=== PATIENT | female | born 1980 | race Caucasian/White ===

== ENCOUNTER → 2018-07-05 08:41 | Outpatient (CLI) | payer OTHER, MEDICAID, SELFPAY ==
[2018-07-05 09:22] LABS: Cholesterol 257 mg/dL (140-199); HDL Cholesterol 69 mg/dL (40-60); LDL Cholesterol Calculated 171 mg/dL (<100); Triglycerides 83 mg/dL (35-150)
[2018-07-05 09:54] LABS: Hepatitis B Surface Antigen NEGATIVE s/c (NEGATIVE)
[2018-07-05 10:19] LABS: HIV 1 and 2 Antibody NEGATIVE (NEGATIVE); Hep C Virus Ab w/Reflex Quant NEGATIVE s/c (NEGATIVE)
[2018-07-05 11:24] LABS: Urine N gonorrhoeae NOT DETECTED
[2018-07-05 11:29] LABS: Urine Chlamydia NOT DETECTED
== END ==
PROVIDERS: PCP Family Medicine; Visit Provider Family Medicine
DX: Z20.2 Contact with and (suspected) exposure to infections with a predominantly sexual mode of transmission (principal); E66.3 Overweight; Z13.220 Encounter for screening for lipoid disorders
CPT/HCPCS: 36415; 80061; 86703; 86803; 87340; 87491; 87591

== ENCOUNTER → 2019-03-07 09:06 | Outpatient (CLI) | payer OTHER, MEDICAID, SELFPAY ==
[2019-03-07 09:52] LABS: Alanine Aminotransferase 19 IU/L (9-52); Albumin 4.3 g/dL (3.5-5.0); Albumin Globulin Ratio 1.5 (1.0-2.8); Alkaline Phosphatase 53 U/L (38-126); Aspartate Aminotransferase 19 IU/L (14-36); BUN Creatinine Ratio 15.6 (6-22); Bilirubin Total 0.3 mg/dL (0.2-1.3); Blood Urea Nitrogen 14 mg/dL (7-17); Calcium 8.8 mg/dL (8.4-10.2); Carbon Dioxide 26 mmol/L (22-32); Chloride 106 mmol/L (98-107); Cholesterol 212 mg/dL (140-199); Estimated Glomerular Filt Rate > 60.0 mL/min (>60); Globulin 2.9 g/dL (1.7-4.1); Glucose 94 mg/dL (70-100); HDL Cholesterol 56 mg/dL (40-60); HEMOLYSIS < 15 (0-50); LDL Cholesterol Calculated 139 mg/dL (<100); Potassium 4.1 mmol/L (3.4-5.1); Sodium 139 mmol/L (137-145); Total Protein 7.2 g/dL (6.3-8.2); Triglycerides 83 mg/dL (35-150)
[2019-03-07 10:26] LABS: Hematocrit 44.4 % (36-46); Hemoglobin 15.1 g/dL (12.0-16.0); Mean Corpuscular Hemoglobin 31.5 PG (26-34); Mean Corpuscular Volume 92.5 fL (80-100); Platelet Count 226 X10^3/uL (150-400); Red Cell Distribution Width 13.1 % (11.6-14.8); White Blood Cell Count 8.7 X10^3/uL (4.5-11.0)
[2019-03-07 11:25] LABS: TSH w/ Reflex to FT4 1.13 uIU/mL (0.47-4.68)
== END ==
PROVIDERS: PCP Nurse Practitioner Family; Visit Provider Obstetrics & Gynecology Maternal & Fetal Medicine
DX: E78.2 Mixed hyperlipidemia (principal); Z00.00 Encounter for general adult medical examination without abnormal findings; Z68.31 Body mass index [BMI] 31.0-31.9, adult
CPT/HCPCS: 36415; 80053; 80061; 84443; 85027

== ENCOUNTER → 2019-09-15 12:28 | Outpatient (CLI) | payer OTHER, MEDICAID, SELFPAY | PROVIDERS: PCP Nurse Practitioner Family; Visit Provider Specialist | DX: N91.2 Amenorrhea, unspecified (principal); Z87.59 Personal history of other complications of pregnancy, childbirth and the puerperium | CPT/HCPCS: 36415; 84702 ==

== ENCOUNTER → 2019-11-20 15:07 | Outpatient (CLI) | payer OTHER, MEDICAID, SELFPAY ==
[2019-11-20 15:51] LABS: Add Manual Diff / Slide Review NO; Basophils Absolute Auto 0 /uL (0-100); Basophils Percent Auto 0.3 % (0-2); Eosinophils Absolute Auto 200 /uL (0-450); Eosinophils Percent Auto 1.7 % (2-4); Hematocrit 38.3 % (36-46); Hemoglobin 13.1 g/dL (12.0-16.0); Lymphocytes Absolute Auto 1400 /uL (1100-4500); Lymphocytes Percent Auto 14.4 % (25-40); Mean Corpuscular HGB Conc 34.1 % (30-36); Mean Corpuscular Hemoglobin 30.8 PG (26-34); Mean Corpuscular Volume 90.3 fL (80-100); Monocytes Absolute Auto 900 /uL (0-900); Monocytes Percent Auto 9.2 % (3-14); Neutrophils Absolute Auto 7500 /uL (1500-7000); Neutrophils Percent Auto 74.4 % (50-75); Platelet Count 234 X10^3/uL (150-400); Red Blood Cell Count 4.24 X10^6/uL (4.0-5.2); Red Cell Distribution Width 12.8 % (11.6-14.8)
[2019-11-20 16:23] LABS: Appearance Urine UA CLEAR; Bilirubin Urine UA NEGATIVE (NEGATIVE); Color Urine UA YELLOW; Glucose Urine UA NEGATIVE (Negative); Ketones Urine UA NEGATIVE (NEGATIVE); Leukocyte Esterase Urine UA NEGATIVE (NEGATIVE); Nitrite Urine UA NEGATIVE (Negative); Occult Blood Urine UA NEGATIVE (Negative); Protein Urine UA NEGATIVE (Negative); Urobilinogen Urine UA 0.2 E.U./dL (0.2)
[2019-11-20 16:24] LABS: pH Urine UA 5.5 (4.5-8.0)
[2019-11-20 16:53] LABS: HCG Quantitative /Beta subunit 42829 mIU/mL
[2019-11-20 17:14] LABS: Hepatitis B Surface Antigen NEGATIVE s/c (NEGATIVE); Rubella Antibody IgG 5.1 IU/mL (>15)
[2019-11-20 17:16] LABS: HIV 1 & 2 Ab/Ag 4th Gen Combo NEGATIVE (NEGATIVE); Hep C Virus Ab w/Reflex Quant NEGATIVE s/c (NEGATIVE)
[2019-11-22 18:31] LABS: RPR Screen Nonreactive (Nonreactive)
[2019-11-24 12:54] LABS: HSV 1 IgM Screen Negative (Negative); HSV 2 IgM Screen Negative (Negative)
== END ==
PROVIDERS: PCP Nurse Practitioner Family; Visit Provider Specialist
DX: Z34.81 Encounter for supervision of other normal pregnancy, first trimester (principal); N91.2 Amenorrhea, unspecified; Z87.59 Personal history of other complications of pregnancy, childbirth and the puerperium
CPT/HCPCS: 36415; 80055; 81003; 84702; 86695; 86696; 86787; 86803; 86850; 86900; 86901; 87086; 87389

== ENCOUNTER → 2019-11-26 11:46 | Outpatient (CLI) | payer OTHER, MEDICAID, SELFPAY ==
[2019-11-30 00:34] LABS: AFP, Serum 33.1 ng/mL; Brief History NTD NG; Cigarette Smoker NO; Donated Egg NO; Donor Egg Age NOT GIVEN; Estriol, Free 1.01 ng/mL; Inhibin A, Dimeric 151 pg/mL; Inhibin A, MoM 1.01; Maternal Ethnicity White; Maternal Weight 201 lbs; Number of Fetuses 1; Previous Pregnancy Down Syndro NO; hCG, MoM 1.45; hCG, Serum 42.7 IU/mL
== END ==
PROVIDERS: PCP Nurse Practitioner Family; Visit Provider Specialist
DX: Z34.92 Encounter for supervision of normal pregnancy, unspecified, second trimester (principal); Z3A.16 16 weeks gestation of pregnancy
CPT/HCPCS: 36415; 82105; 82677; 84702; 86336

== ENCOUNTER → 2019-12-09 16:10 | Outpatient (CLI) | payer OTHER, MEDICAID, SELFPAY ==
[2019-12-09 18:29] LABS: Clostridium Difficile Tox PCR Negative for C. diff
== END ==
PROVIDERS: PCP Nurse Practitioner Family; Visit Provider Specialist
DX: Z34.92 Encounter for supervision of normal pregnancy, unspecified, second trimester (principal); R19.7 Diarrhea, unspecified
CPT/HCPCS: 87493

== ENCOUNTER → 2019-12-24 11:55 | Outpatient (CLI) | payer OTHER, MEDICAID, SELFPAY ==
--- NOTE | 2019-12-24 11:57 | DI.US.S_ITS ---
PROCEDURE: US OB >= 14 WEEKS FETUS INDICATIONS: 20 week anatomy scan OUTSIDE/PRIOR DATING DATA: Last menstrual period (LMP): Unknown. LMP-based estimated date of delivery (MEHRAN): Unknown. First dating scan (date and location): 10/16/19. Estimated date of delivery (MEHRAN) from first dating scan: 05/12/20 TECHNIQUE: Real-time scanning was performed of the fetus, with image documentation and biometric measurements. Endovaginal scanning: Not performed COMPARISON: [facility], , OB <= 14 WEEKS FETUS, 10/16/2019, 12:28. FINDINGS: General: A single living intrauterine gestation is present. Presentation: Vertex. Placenta: Placental position is posterior, without previa. Amniotic fluid index: 10.6 cm, normal range is 5-24 cm. heart rate: 137 beats per minute. Maternal cervical canal: 5.2 cm long. Normal lower limit is 2.5 cm. biometrics: Biparietal diameter: 4.6 cm, 19 weeks 6 days Head circumference: 16.9 cm, 19 weeks 4 days Abdominal circumference: 14.9 cm, 20 weeks one day Femur length: 3.2 cm, 19 weeks 6 days Estimated gestational age from initial scan: 20 weeks zero days Composite gestational age from present scan: 19 weeks 6 days Estimated weight and percentile: 324 g, 43rd percentile Measurement variability for biometric dating: +/- 7 days from 14 weeks to 15 weeks 6 days gestation, +/- 10 days from 16 weeks to 21 weeks 6 days gestation, +/- 2 weeks from 22 weeks to 27 weeks 6 days gestation, +/- 3 weeks for 28 weeks gestation or later. weight reference: 4500 g or EFW >90/95% is considered macrosomia or large for gestational age. EFW <10% is small for gestational age. EFW 5% or less is considered intra-uterine growth restriction. Anatomic survey: Neuro: Ventricles are non-dilated at less than 10 mm. Cisterna magna is normal at 3-11 mm. Cerebellum is normal in size and morphology. Nuchal skin fold: Normal at less than 6 mm between 14-21 weeks gestational age. Face: Nose and lips, facial profile are normal. Spine: No evidence for spina bifida. Heart: 4-chambered heart is present, with normal ventricular outflow tracts. Diaphragm: Diaphragm is intact. Stomach: Left-sided stomach is present. Kidneys: No hydronephrosis. Normal is less than 5 mm in 2nd trimester, less than 7 mm in 3rd trimester. Cord: 3-vessel cord has orthotopic insertion. Bladder: Normal in size. Extremities: All 4 extremities identified. IMPRESSION: Single living intrauterine fetus in vertex presentation. Expected interval growth. Normal anatomic survey Dictated by: Arnold Regalado M.D. on 12/24/2019 at 17:18 Approved by: Arnold Regalado M.D. on 12/24/2019 at 17:23
== END ==
PROVIDERS: PCP Nurse Practitioner Family; Referring Provider Specialist; Visit Provider Specialist
DX: Z34.82 Encounter for supervision of other normal pregnancy, second trimester (principal); Z3A.19 19 weeks gestation of pregnancy
CPT/HCPCS: 76811

== ENCOUNTER → 2020-02-02 12:25 | Outpatient (CLI) | payer OTHER, MEDICAID, SELFPAY ==
[2020-02-02 13:15] LABS: Hematocrit 35.7 % (36-46); Hemoglobin 11.9 g/dL (12.0-16.0)
== END ==
PROVIDERS: PCP Nurse Practitioner Family; Referring Provider Specialist; Visit Provider Specialist
DX: O26.899 Other specified pregnancy related conditions, unspecified trimester (principal); Z67.91 Unspecified blood type, Rh negative
CPT/HCPCS: 36415; 85014; 85018; 86850

== ENCOUNTER → 2020-04-15 14:52 | Outpatient (CLI) | payer OTHER, MEDICAID, SELFPAY ==
[2020-04-16 11:15] LABS: Strep Grp B PCR NEG for Grp B Strep
== END ==
PROVIDERS: PCP Nurse Practitioner Family; Visit Provider Specialist
DX: Z34.83 Encounter for supervision of other normal pregnancy, third trimester (principal)
CPT/HCPCS: 87653

== ENCOUNTER 2020-05-03 05:25 | Inpatient (IN) | payer OTHER, MEDICAID, SELFPAY ==
[2020-05-03] MEDS: LACTATED RINGERS 1,000 ML 100 ML IV (06:05)
--- NOTE | 2020-05-03 06:06 | PM.OBHP.1 ---
OB HPI Date/Time Date of admission: 05/03/20 Date Patient Seen: 05/03/20 Time Patient Seen: 05:20 History of Present Condition Chief complaint: Evaluation of Labor : 7 Para: 5 Estimated Date of Delivery: 05/12/20 Estimated Gestational Age (weeks): 38 Narrative: Radha Foster is a 39 year old female who presents at 39 weeks after spontaneous rupture membranes at home. She developed uncomfortable contractions shortly after SROM. Her has been uncomplicated. She had a normal quad screen. She declined the Glucola screen. She is on acyclovir for HSV suppression. She denies any HSV symptoms. History of Present care: good care and initiated at week # (10) Dating criteria: based on 1st trimester US only (Uncertain LMP but was consistent within 6 days) Preadmission Labs Blood type: 0 (-) negative -: Antibody screen: negative, GBS status: negative, HBsAG: negative, HIV: negative and RPR/VDLR: negative -: Rubella: not immune and Varicella: immune Quad screen: Normal Narrative: Declined the 1 hr GTT Evaluation Evaluation Baseline heart rate: 130 Variability: Moderate (11-25) monitor accelerations: Present monitor decelerations: Absent Contraction Frequency (minutes): 2 Uterine Contraction Intensity: Strong/Firm Category of Tracing: I Cervical dilation (cm): 5 Cervical effacement (%): 90 station: -1 Comments: gross LOF, clear PFSH Medical History Anxiety (Chronic) Bronchitis (Acute) Depression (Chronic) Ectopic (Acute ~1994) Herpes (Chronic 2016) Kidney stones (Acute) LGSIL (low grade squamous intraepithelial dysplasia) (Acute) Pneumonia (Acute) Rosacea (Chronic 1998) Tachycardia (Acute) Surgical History Crowder teeth removed (Acute) Family History (Updated 11/16/19 @ 15:42 by Daksha Kurtz RN) Mother Age: 66 Heart disease Cancer Myocardial infarction Father Skin cancer Traumatic brain injury Seizures Sister No problems noted. Grandmother Alzheimer's dementia Grandfather Acute alcohol intoxication with alcoholism Social History marital status: unmarried,living together household members: children occupational status: employed Smoking Status: Never smoker second hand exposure: No alcohol intake: current substance use type: does not use Meds Home Medications and Allergies Home Medications Medication Instructions Recorded Confirmed Type omeprazole 40 mg capsule,delayed 40 mg PO DAILY #30 cap 03/16/20 04/29/20 Rx release acyclovir 400 mg tablet 400 mg PO DAILY #30 tab 04/15/20 04/29/20 Rx Allergies Allergy/AdvReac Type Severity Reaction Status Date / Time latex [LATEX] Allergy Intermediate rash Verified 05/03/20 06:21 aspirin AdvReac Vomit Verified 05/03/20 06:21 Exam Vital Signs (past 8 hours): Afebrile BP 125/74 pulse 73 Narrative Exam Narrative: General: Appears uncomfortable with contractions, comfortable between contractions Cervix Objective Labs Result Diagrams: 05/03/20 06:02 Assessment and Plan Assessment and Plan Assessment and Plan narrative: 38 weeks 5 days EGA, SROM, labor. GBS negative She desired an epidural. Per records, desires a tubal ligation, will inquire after delivery if still desires Admitted CBC, type and screen ordered. Place IV, will hydrate. Anesthesiologist called for epidural, pending IV placement Time Spent with Patient Total time spent with greater than 50% in coordination of care (as documented) at patient's floor/unit and/or counseling patient:: 15-24 minutes
[2020-05-03 06:19] LABS: Basophils Absolute Auto 100 /uL (0-100); Basophils Percent Auto 0.6 % (0-2); Eosinophils Absolute Auto 100 /uL (0-450); Eosinophils Percent Auto 0.8 % (2-4); Hematocrit 35.1 % (36-46); Hemoglobin 11.8 g/dL (12.0-16.0); Lymphocytes Absolute Auto 1500 /uL (1100-4500); Lymphocytes Percent Auto 13.5 % (25-40); Mean Corpuscular HGB Conc 33.6 % (30-36); Mean Corpuscular Hemoglobin 29.1 PG (26-34); Mean Corpuscular Volume 86.6 fL (80-100); Monocytes Absolute Auto 1000 /uL (0-900); Monocytes Percent Auto 9.2 % (3-14); Neutrophils Absolute Auto 8500 /uL (1500-7000); Neutrophils Percent Auto 75.9 % (50-75); Platelet Count 110 X10^3/uL (150-400); Red Blood Cell Count 4.06 X10^6/uL (4.0-5.2); Red Cell Distribution Width 15.5 % (11.6-14.8); White Blood Cell Count 11.2 X10^3/uL (4.5-11.0)
[2020-05-03 06:22] LABS: Add Manual Diff / Slide Review SLIDE REVIEW
[2020-05-03 06:34] LABS: RBC Morphology Normal Morphology
[2020-05-03] MEDS: FENT 2MCG/ML BUPIV 0.125% EPI 200 MCG/100 ML PLAST..BAG 12 MCG EPIDURAL (06:47)
[2020-05-03 07:31] VITALS: BP 118/74
[2020-05-03 11:21] VITALS: BP 135/67
[2020-05-03] MEDS: IBUPROFEN 600 MG TABLET PO ×2 (17:40→23:08)
--- NOTE | 2020-05-03 20:55 | P.PCNOB_ITS ---
Labor & Delivery Delivery date: 05/03/20 Delivery monitor: external FHT and external uterine Route of delivery: L&D Laceration Description: None Estimated blood loss (mL): 300 Anesthesia type: Epidural Complications: Prolonged awaiting for delivery of placenta. Spontaneously detached after 2 hours, after Pitocin IV and misoprostol, after her epidural bolused for manual extraction. After the epidural bolus, placenta bulging through the cervix, and with patient giving a push with some gentle traction, placenta delivered. Narrative: She progressed to completely dilated. She pushed only over a few contractions and had a spontaneous vaginal delivery over an intact perineum from the TRACY position. No nuchal cord was present. Anterior followed by posterior shoulder were delivered without difficulty with the patient pushing, followed by the remainder of the body. A baby girl was delivered at 0821. She cried spontaneously, appeared vigorous and was placed on the maternal abdomen. Per request, cord was not clamped and cut until after pulsations stopped which was approximately 10 minutes after delivery. Inspection revealed there to be no lacerations. The periurethral area, perineum and vaginal sidewalls were intact. Placenta did not deliver until after a prolonged length of time, approximately 2 hours. Only the very edge of the cervix was felt to be bulging on the uterine side of the cervix after approximately 30 minutes. With some gentle traction placenta confirmed to still be attached. Cord was thin and no significant traction could be given. Pitocin IV started and misoprostol buccal given. She had been breast-feeding as well. After over 1 hour, there was a small amount of placenta bulging through the cervix but nothing further and with checking with some traction and the patient giving a push, the placenta was not detached. She did not have any vaginal bleeding throughout this time. Uterine fundal height had only increased by 2-3 cm. Her vital signs did remain stable. She preferred to try to await delivery of the placenta and had not desired manual removal of the placenta after 1 hour, even declining under anesthesia since this would have requested COVID-19 screening. I discussed manual extraction again at approximately 90 minutes after delivery. She desired proceeding with this at this time in the delivery room. This was approximately 30 minutes after giving her the misoprostol. Anesthesiologist was called and bolused her epidural. After the epidural bolus, approximately half o avelina placenta was felt to be through the cervix. With some traction and then with the patient giving a push, the placenta delivered. On digital exam there was felt to be some small clots at the cervix which were teased out. No further clot was palpated. The uterus was carla down very well. She only had a small amount of bleeding and this quickly became minimal after uterine massage. Her IV Pitocin was increased as routine for maintaining uterine tone. Placenta was inspected and noted to be intact. She did well and was left to recover in good condition. Baby 1: Infant gender: Female Presentation: vertex position: Right Occiput Anterior Placenta delivery description: Spontaneous (But after 2 hours, and after Pitocin, misoprostol and bolusing her epidural to get ready for manual extraction.) cord vessel description: 3 Vessels score (1 min): 8 score (5 min): 9 Narrative: Weight was 7 lb 11 oz Plan for aftercare: Left to recover in good condition
[2020-05-04] MEDS: ACETAMINOPHEN 325 MG TABLET 650 MG PO ×2 (01:28→08:25)
[2020-05-04] MEDS: OXYCODONE IR 5 MG TABLET PO (02:05)
--- NOTE | 2020-05-04 08:03 | P.DS_ITS ---
Discharge Providers Provider Date of admission: 05/03/20 05:25 Discharge Date: 05/04/20 Primary care physician: BILL Castaneda Consults: 05/04/20 11:46 Consult to Rock Crusher Operator Routine Comment: Discharge provider: Montse Ramos MD Summary Hospital Course Date Patient Seen: 05/04/20 Time Patient Seen: 08:00 Procedures: Epidural catheter, vaginal delivery Hospital Course: Patient arrived on Labor and delivery after spontaneous rupture membranes. She received an epidural catheter for pain control. She had a spontaneous vaginal delivery. She had a retained placenta that eventually delivered after 2 hours. She had declined manual removal. She is breast-feeding without difficulty. Urinating and ambulating well. She denies any headaches, scotomata, epigastric pain. Peripartum Data Delivery Method: Natural Vaginal Laceration description: None complications: none 1: Gender: Female (Weight 7 lb 11 oz) Disposition of : home Discharge Diagnosis (1) Vaginal delivery: Status: Acute Status at Discharge Cognitive/behavioral status at discharge: oriented Functional status at discharge: independent ambulation Overall status at discharge: patient is progressing back to baseline Time Spent with Patient Time attestation: Total time spent providing and/or coordinating discharge services: Time spent: Less than 30 minutes Objective Labs Result Diagrams: 05/03/20 06:02 Exam Vital Signs (past 8 hours): Blood pressure 110/66, pulse 68, temperature 97.7? Narrative Exam Narrative: Abdomen is soft, nontender. Uterus is firm, at U, nontender. Mild lochia. Extremities without edema and nontender. Patient is O negative but the baby is also no O negative so no RhoGAM is needed. Patient was offered rubella vaccine and declined. She declined the Tdap in the 3rd trimester. Discharge Plan Discharge Plan Patient Disposition: Home Discharge orders & Medications Prescriptions: New ibuprofen 600 mg Tablet 600 mg PO Q6HR PRN (Reason: Fever/Mild Pain (1-3)) Qty: 20 RF: 0 oxycodone 5 mg Tablet 5 mg PO Q4HR PRN (Reason: Pain, Moderate (4-6)) Qty: 15 RF: 0 Discontinued omeprazole 40 mg capsule,delayed release(DR/EC) 40 mg PO DAILY Qty: 30 RF: 2 acyclovir 400 mg tablet 400 mg PO DAILY Qty: 30 RF: 0 Follow up/Referrals: Jenna Neal ARNP [Primary Care Provider] - Montse Ramos MD [Physician] - 1 Month Diet/Activity/Treatments Diet: Regular Skin/Wound/Dressing Care Report to your healthcare provider any signs of infection, such as:: chills, fever and increased pain Discharge Data Primary Care Provider: Jenna Neal
[2020-05-04] MEDS: IBUPROFEN 600 MG TABLET PO (08:25)
[2020-05-04] MEDS: PANTOPRAZOLE 40 MG TABLET PO (08:26)
[2020-05-04 09:49] VITALS: BP 110/66; PULSE 68; RESP 16; TEMP 36.5
== END 2020-05-04 10:55 | disposition home or self-care (01) | DRG 560 ==
PROVIDERS: Specialist; Admitting Provider Obstetrics & Gynecology; PCP Nurse Practitioner Family; Referring Provider Nurse Practitioner Family; Visit Provider Obstetrics & Gynecology
DX: O98.32 Other infections with a predominantly sexual mode of transmission complicating childbirth (principal); B00.9 Herpesviral infection, unspecified; Z3A.38 38 weeks gestation of pregnancy; Z37.0 Single live birth
CPT/HCPCS: 01967; 36415; 59050; 59409; 85025; 86850; 86870; 86900; 86901; G0379

== ENCOUNTER → 2020-12-27 15:34 | Outpatient (CLI) | payer OTHER, MEDICAID, SELFPAY ==
--- NOTE | 2020-12-27 16:43 | DIET.PN ---
Dietary Progress Note Assessment: 40y F visiting dietitian for help with health surveillence and abnormal weight gain. Pt has 5 children (21, 16, 15, 3.5, 8mo) just found out is again around 6w. Pt has successfully used phentermine in the past to assist weight loss. She said she was going to the gym daily and it was an appetite suppressant. She reports getting down to 142# and being in the best shape of her life. Usual Day: wakes up 6am after second alarm B: 4 eggo blueberry waffles c butter or plain c SF body armor, sweet tea, juice of some kind L: honey glazed turkey or creamy mushroom chicken weight watchers meals or if starving will get chicken nuggets c coke at drive thru doesn't eat the junky foods at work but will eat all of a veggie tray D: pasta mesfin, salmon, green beans always have protein, salad, starch, dinner is at 5pm daily 1x/w has bowl of ice cream likes cold, whole fruit beans are okay loves seafood, prime rib, fried chicken No chocolate, peanut butter, coffee, onions, mushrooms, avoids most dairy (lactose intolerance), no pork loves grilled foods but only has charcoal grill Pt takes the kids outside but it doesn't constitute as physical activity because they are moving slowly. HT: 5'6 WT: 200# (150# is goal) UBW: 145# BMI: 32.3 Labs: pt reports having high LDL cholesterol from outside lab source ~[address] Impression: Pt had large life shift when her younger children were born, prior to that she was able to do self-care and exercise regularly, better managing her weight. This shift along c high intake of sugar sweetened beverages has led to slow increase in body weight. Focus today was on establishing a general healthy diet to support the growth of baby. RD happy to work c pt post-partem for continued weight loss support. Nutrition Diagnosis: obesity r/t undesirable food choices and physical inactivity aeb pt is 50# over her UBW, BMI 32.3, pt drinks sugar sweetened beverages daily, pt is mom to 5 children and during global pandemic which increases her baseline stress levels. Interventions: 1. To support pts weight regulation and healthy metabolism, introduced pt to the hunger scale. Encouraged pt to eat when 3 and stop when 8 and to not eat when 5 to honor her own hunger and fullness. Pt feels she is not eating enough at lunch so will add a side of veggies or a snack to better support her metabolism. 2. Introduced pt to plate balance. Problem solved several of pts meals using this guide and encouraged her to use this when building all meals and snacks. 3. Provided pt copy of 200kcal snack ideas. 4. To support pts high LDL cholesterol, educated pt on role of soluble fiber in the diet and good sources using handout. 5. To support healthy metabolism and weight regulation, recc pt limit herself to 25g added sugar per day. Used food labels to identify added sugar in a variety of beverages. Discussed aiming for no added sugar and no artificial sugar when possible. Monitoring/Evaluations: pt will f/u postpartem to work on weight loss
== END ==
PROVIDERS: PCP Nurse Practitioner Family; Referring Provider Nurse Practitioner Family; Visit Provider Nurse Practitioner Family
DX: O26.01 Excessive weight gain in pregnancy, first trimester (principal); Z3A.01 Less than 8 weeks gestation of pregnancy; Z71.3 Dietary counseling and surveillance
CPT/HCPCS: 97802

== ENCOUNTER → 2021-02-06 16:48 | Outpatient (CLI) | payer OTHER, MEDICAID, SELFPAY ==
[2021-02-09 01:02] LABS: Chlamydia trachomatis NAA Negative (Negative); Neisseria gonorrhoeae NAA Negative (Negative)
== END ==
PROVIDERS: PCP Nurse Practitioner Family; Visit Provider Obstetrics & Gynecology
DX: Z34.81 Encounter for supervision of other normal pregnancy, first trimester (principal); Z3A.10 10 weeks gestation of pregnancy
CPT/HCPCS: 87491; 87591

== ENCOUNTER → 2021-02-27 15:00 | Outpatient (CLI) | payer OTHER, MEDICAID, SELFPAY ==
[2021-02-27 16:55] LABS: Appearance Urine UA CLEAR; Bilirubin Urine UA NEGATIVE (NEGATIVE); Color Urine UA YELLOW; Glucose Urine UA NEGATIVE (Negative); Ketones Urine UA NEGATIVE (NEGATIVE); Leukocyte Esterase Urine UA NEGATIVE (NEGATIVE); Nitrite Urine UA NEGATIVE (Negative); Occult Blood Urine UA NEGATIVE (Negative); Protein Urine UA NEGATIVE (Negative); Specific Gravity Urine UA >=1.030 (1.000-1.035); Urobilinogen Urine UA 0.2 E.U./dL (0.2)
[2021-02-27 17:05] LABS: Add Manual Diff / Slide Review NO; Basophils Absolute Auto 0 /uL (0-100); Basophils Percent Auto 0.2 % (0-2); Eosinophils Absolute Auto 100 /uL (0-450); Eosinophils Percent Auto 1.3 % (2-4); Hematocrit 41.1 % (36-46); Hemoglobin 13.9 g/dL (12.0-16.0); Lymphocytes Absolute Auto 1900 /uL (1100-4500); Lymphocytes Percent Auto 16.9 % (25-40); Mean Corpuscular HGB Conc 33.8 % (30-36); Mean Corpuscular Hemoglobin 30.4 PG (26-34); Monocytes Absolute Auto 900 /uL (0-900); Monocytes Percent Auto 8.4 % (3-14); Neutrophils Absolute Auto 8100 /uL (1500-7000); Neutrophils Percent Auto 73.2 % (50-75); Platelet Count 175 X10^3/uL (150-400); Red Blood Cell Count 4.56 X10^6/uL (4.0-5.2); Red Cell Distribution Width 13.6 % (11.6-14.8); White Blood Cell Count 11.1 X10^3/uL (4.5-11.0)
[2021-02-27 17:11] LABS: Hemoglobin A1C% w Est Avg Glu 5.1 % (4.0-6.0)
[2021-02-27 17:46] LABS: Creatinine Urine Random 136.8 mg/dL; Protein (Total) Urine Random 7 mg/dL (0-12); Protein Creatinine Ratio Urine 0.05 GRAM/24H
[2021-02-27 17:47] LABS: Alanine Aminotransferase 12 IU/L (<35); Albumin 3.8 g/dL (3.5-5.0); Albumin Globulin Ratio 1.2 (1.0-2.8); Alkaline Phosphatase 60 U/L (38-126); Aspartate Aminotransferase 21 IU/L (14-36); BUN Creatinine Ratio 14.3 (6-22); Bilirubin Total 0.2 mg/dL (0.2-1.3); Blood Urea Nitrogen 9 mg/dL (7-17); Calcium 9.4 mg/dL (8.4-10.2); Carbon Dioxide 23 mmol/L (22-32); Chloride 104 mmol/L (98-107); Estimated Glomerular Filt Rate > 60.0 mL/min (>60); Globulin 3.2 g/dL (1.7-4.1); Glucose 89 mg/dL (70-100); HEMOLYSIS < 15 (0-50); Lactate Dehydrogenase 417 U/L (313-618); Potassium 3.5 mmol/L (3.4-5.1); Sodium 134 mmol/L (137-145)
[2021-02-28 01:59] LABS: Hepatitis B Surface Antigen NEGATIVE s/c (NEGATIVE)
[2021-02-28 02:18] LABS: HIV 1 & 2 Ab/Ag 4th Gen Combo NEGATIVE (NEGATIVE); Hep C Virus Ab w/Reflex Quant NEGATIVE s/c (NEGATIVE)
[2021-02-28 06:11] LABS: RPR Screen Non Reactive (Non Reactive)
[2021-02-28 15:13] LABS: Varicella IgG Antibody 1092 index (Immune >165)
[2021-02-28 17:24] LABS: Rubella Antibody IgG 5.7 IU/mL (>15)
== END ==
PROVIDERS: PCP Nurse Practitioner Family; Referring Provider Obstetrics & Gynecology; Visit Provider Obstetrics & Gynecology
DX: O09.521 Supervision of elderly multigravida, first trimester (principal); Z36.0 Encounter for antenatal screening for chromosomal anomalies
CPT/HCPCS: 36415; 80053; 80055; 81003; 81420; 82570; 83036; 83615; 84156; 84550; 86787; 86803; 86850; 86900; 86901; 87086; 87389

== ENCOUNTER → 2021-04-10 15:40 | Outpatient (CLI) | payer OTHER, MEDICAID, SELFPAY ==
--- NOTE | 2021-04-10 15:41 | DI.US.S_ITS ---
PROCEDURE: US OB >= 14 WEEKS FETUS INDICATIONS: 20 week FAS OUTSIDE/PRIOR DATING DATA: First dating scan (date and location): 02/06/2021. Estimated date of delivery (MEHRAN) from first dating scan: 08/26/2021. TECHNIQUE: Real-time scanning was performed of the fetus, with image documentation and biometric measurements. Endovaginal scanning: Not performed COMPARISON: [facility], , OB >= 14 WEEKS FETUS, 02/27/2021, 15:00. FINDINGS: General: A single living intrauterine gestation is present. Presentation: Cephalic. Placenta: Placental position is anterior, without previa. Amniotic fluid index: 16.5 cm, normal range is 5-24 cm. heart rate: 144 beats per minute. Maternal cervical canal: 6.1 cm long. Normal lower limit is 2.5 cm. biometrics: Biparietal diameter: 4.9 cm, 20 weeks 5 days Head circumference: 18 cm, 20 weeks 3 days Abdominal circumference: 15.2 cm, 20 weeks 3 days Femur length: 3.3 cm, 20 weeks 2 days Estimated gestational age from initial scan: 20 weeks 2 days Composite gestational age from present scan: 20 weeks 3 days Estimated weight and percentile: 350 g, 51st percentile Measurement variability for biometric dating: +/- 7 days from 14 weeks to 15 weeks 6 days gestation, +/- 10 days from 16 weeks to 21 weeks 6 days gestation, +/- 2 weeks from 22 weeks to 27 weeks 6 days gestation, +/- 3 weeks for 28 weeks gestation or later. weight reference: 4500 g or EFW >90/95% is considered macrosomia or large for gestational age. EFW <10% is small for gestational age. EFW 5% or less is considered intra-uterine growth restriction. Anatomic survey: Neuro: Ventricles are non-dilated at less than 10 mm. Cisterna magna is normal at 3-11 mm. Cerebellum is normal in size and morphology. Nuchal skin fold: Normal at less than 6 mm between 14-21 weeks gestational age. Face: Nose and lips, facial profile are normal. Spine: No evidence for spina bifida. Heart: 4-chambered heart is present, with normal ventricular outflow tracts. Diaphragm: Diaphragm is intact. Stomach: Left-sided stomach is present. Kidneys: No hydronephrosis. Normal is less than 5 mm in 2nd trimester, less than 7 mm in 3rd trimester. Cord: 3-vessel cord has orthotopic insertion. Bladder: Normal in size. Extremities: All 4 extremities identified. IMPRESSION: 1. Espinosa living intrauterine at 20 weeks 3 days based on today's ultrasound. This is concordant with the prior ultrasound. There is expected interval growth. Fetus is in the 51st percentile for weight. 2. Normal placenta and amniotic fluid. 3. Normal and complete anatomic survey. Dictated by: Bonifacio Pickens M.D. on 04/10/2021 at 17:34 Approved by: Bonifacio Pickens M.D. on 04/10/2021 at 17:38
== END ==
PROVIDERS: PCP Nurse Practitioner Family; Referring Provider Obstetrics & Gynecology; Visit Provider Obstetrics & Gynecology
DX: Z34.82 Encounter for supervision of other normal pregnancy, second trimester (principal); Z3A.20 20 weeks gestation of pregnancy
CPT/HCPCS: 76811

== ENCOUNTER → 2021-05-24 15:30 | Outpatient (CLI) | payer OTHER, MEDICAID, SELFPAY ==
[2021-05-24 21:02] LABS: Urine N gonorrhoeae NOT DETECTED
[2021-05-24 21:04] LABS: Urine Chlamydia NOT DETECTED
== END ==
PROVIDERS: PCP Nurse Practitioner Family; Visit Provider Obstetrics & Gynecology
DX: Z34.82 Encounter for supervision of other normal pregnancy, second trimester (principal); Z3A.26 26 weeks gestation of pregnancy
CPT/HCPCS: 87491; 87591

== ENCOUNTER → 2021-05-24 15:49 | Outpatient (CLI) | payer OTHER, MEDICAID, SELFPAY ==
[2021-05-24 17:16] LABS: Hematocrit 37.1 % (36-46); Hemoglobin 12.3 g/dL (12.0-16.0)
== END ==
PROVIDERS: PCP Nurse Practitioner Family; Referring Provider Obstetrics & Gynecology; Visit Provider Obstetrics & Gynecology
DX: Z34.82 Encounter for supervision of other normal pregnancy, second trimester (principal); Z3A.26 26 weeks gestation of pregnancy
CPT/HCPCS: 36415; 85014; 85018; 86850; 87491; 87591

== ENCOUNTER → 2021-06-20 07:58 | Outpatient (CLI) | payer OTHER, MEDICAID, SELFPAY ==
--- NOTE | 2021-06-20 08:00 | DI.US.S_ITS ---
PROCEDURE: US OB LIMITED INDICATIONS: GROWTH OUTSIDE/PRIOR DATING DATA: Last menstrual period (LMP): Not available. LMP-based estimated date of delivery (MEHRAN): Not available First dating scan (date and location): 02/06/21 Estimated date of delivery (MEHRAN) from first dating scan: 08/26/21 . TECHNIQUE: Real-time scanning was performed of the fetus, with image documentation and biometric measurements. Endovaginal scanning: Not needed COMPARISON: None. FINDINGS: General: A single living intrauterine gestation is present. Presentation: Vertex. Placenta: Placental position is anterior , without previa. Amniotic fluid index: 19.5 cm, normal range is 5-24 cm. heart rate: 145 beats per minute. Maternal cervical canal: 4.4 cm long. Normal lower limit is 2.5 cm. biometrics: Biparietal diameter: 8.0 cm, 32 weeks 1 day Head circumference: 28.9 cm, 31 weeks 6 days Abdominal circumference: 29.1 cm, 33 weeks 1 day Femur length: 5.9 cm, 30 weeks 4 days Estimated gestational age from initial scan: 30 weeks 3 days Composite gestational age from present scan: 32 weeks 0 days Estimated weight and percentile: 1119 g, 91st percentile Measurement variability for biometric dating: +/- 7 days from 14 weeks to 15 weeks 6 days gestation, +/- 10 days from 16 weeks to 21 weeks 6 days gestation, +/- 2 weeks from 22 weeks to 27 weeks 6 days gestation, +/- 3 weeks for 28 weeks gestation or later. weight reference: 4500 g or EFW >90/95% is considered macrosomia or large for gestational age. EFW <10% is small for gestational age. EFW 5% or less is considered intra-uterine growth restriction. Other: Not applicable. IMPRESSION: Appropriate interval growth, weight at the 91st percentile for current gestational age based on 1st OB ultrasound open (most accurate). Delivery date is projected to be centered on 08/26/21. Dictated by: Stefan Rodriguez M.D. on 06/20/2021 at 9:43 Approved by: Stefan Rodriguez M.D. on 06/20/2021 at 9:46
== END ==
PROVIDERS: PCP Nurse Practitioner Family; Referring Provider Obstetrics & Gynecology; Visit Provider Obstetrics & Gynecology
DX: Z34.83 Encounter for supervision of other normal pregnancy, third trimester (principal); Z3A.32 32 weeks gestation of pregnancy
CPT/HCPCS: 76815

== ENCOUNTER 2021-07-02 17:54 | Emergency (ER) | payer OTHER, MEDICAID, SELFPAY ==
[2021-07-02 18:08] VITALS: BP 125/77; PULSE 84; RESP 20; TEMP 36.9; O2SAT 98
--- NOTE | 2021-07-02 18:23 | ED.DENTAL ---
HPI - Dental/Oral General Chief complaint: Dental/Oral Stated complaint: JAW BONE INFECTION LOWER LEFT/PAIN Time Seen by Provider: 07/02/21 18:22 Source: patient Mode of arrival: Ambulatory Limitations: no limitations Related Data Home Medications Medication Instructions Recorded Confirmed fenugreek seed extract 500 mg mg PO 09/23/20 05/24/21 capsule flax seed PO TID 09/23/20 05/24/21 prenat.vits,ledy,ewu-urdc-ieknv 1 tab PO DAILY 01/30/21 05/24/21 Previous Rx's Medication Instructions Recorded doxycycline monohydrate 50 mg 50 mg PO DAILY #90 cap 10/20/20 capsule trazodone 50 mg tablet 25 mg PO DAILY #60 tab 10/21/20 omeprazole 40 mg capsule,delayed 40 mg PO DAILY #30 cap 04/22/21 release blood sugar diagnostic (Blood #120 ea 06/09/21 Glucose Test) blood-glucose meter (Blood Glucose #1 ea 06/09/21 Monitoring) lancets #120 ea 06/09/21 amoxicillin 500 mg capsule 500 mg PO TID 7 Days #21 cap 07/02/21 Allergies Allergy/AdvReac Type Severity Reaction Status Date / Time nalbuphine [From Nubain] Allergy Severe Unconscious Verified 05/24/21 15:11 cat dander Allergy Intermediate Sneezing Verified 05/24/21 15:11 and itchy eyes latex [LATEX] Allergy Intermediate rash Verified 05/24/21 15:11 aspirin AdvReac Vomit Verified 05/24/21 15:11 Patient History Medical History (Updated 07/02/21 @ 18:59 by Jj Huber PA-C) Anxiety BMI 31.0-31.9,adult Bronchitis Depression Ectopic (~1994) Herpes (2017) Insomnia Kidney stones LGSIL (low grade squamous intraepithelial dysplasia) OCD (obsessive compulsive disorder) Pneumonia PTSD (post-traumatic stress disorder) Rosacea (1998) Tachycardia Surgical History [place] teeth removed Family History (Updated 01/30/21 @ 09:26 by Daksha Kurtz RN) Mother Age: 67 Heart disease Cancer Myocardial infarction Father Skin cancer Traumatic brain injury Seizures Sister No problems noted. Grandmother Alzheimer's dementia Grandfather Acute alcohol intoxication with alcoholism Grandmother No problems noted. Grandfather No problems noted. Social History marital status: unmarried,living together number of children: 5 household members: children occupational status: employed Smoking Status: Never smoker second hand exposure: No alcohol intake: current substance use type: does not use Smoking Status: Never smoker Substance Use Type: does not use Exam Initial Vital Signs Initial Vital Signs: Vital Signs Temperature 98.4 F 07/02/21 18:08 Pulse Rate 84 07/02/21 18:08 Respiratory Rate 20 07/02/21 18:08 Blood Pressure 125/77 07/02/21 18:08 Pulse Oximetry 98 07/02/21 18:08 Course Orders Ordered: Discontinued Medications Amoxicillin (Amoxicillin 250 Mg Capsule) 500 mg PO NOW ONE Stop: 07/02/21 18:56 Last Admin: 07/02/21 19:06 Dose: 500 mg Documented by: KIM Vital Signs Vital signs: Vital Signs - 8 hr 07/02/21 18:08 07/02/21 19:16 Temperature 98.4 F Pulse Rate 84 88 Respiratory Rate 20 16 Blood Pressure 125/77 133/85 Pulse Oximetry 98 97 Discharge Plan Departure Patient Disposition: Home Clinical Impression: Abscess, dental Discharge Date/Time: 07/02/21 19:16 Instructions: Tooth Abscess Activity Restrictions/Additional Instructions: It was very nice to meet you this evening. Please used the antibiotics to treat the infection and follow up with your dentist as soon as possible. Please return if you develop worsening swelling, difficulty swallowing, difficulty breathing, chest pain or any other acute concerns or complaints. Thank you Jj Huber PAC Prescriptions: New amoxicillin 500 mg capsule 500 mg PO TID 7 Days Qty: 21 RF: 0 No Action trazodone 50 mg tablet 25 mg PO DAILY Qty: 60 RF: 0 omeprazole 40 mg capsule,delayed release(DR/EC) 40 mg PO DAILY Qty: 30 RF: 2 (DME) lancets Misc See Rx Instructions .ROUTE .MEDSUPPLY Qty: 120 RF: 3 (DME) blood-glucose meter [Blood Glucose Monitoring] Kit See Rx Instructions .ROUTE .MEDSUPPLY Qty: 1 RF: 0 (DME) Blood Glucose Test Strip See Rx Instructions .ROUTE .MEDSUPPLY Qty: 120 RF: 3 flax seed PO TID RF: 0 fenugreek seed extract 500 mg capsule PO RF: 0 doxycycline monohydrate 50 mg capsule 50 mg PO DAILY Qty: 90 RF: 0 prenat.vits,ledy,upk-qnmp-[id number] Tablet 1 tab PO DAILY RF: 0 Referrals: Jenna Neal ARNP [Primary Care Provider] -
--- NOTE | 2021-07-02 18:45 | ED.DENTAL ---
HPI - Dental/Oral <Jj Huber PA-C - Last Filed: 07/02/21 19:47> General Chief complaint: Dental/Oral Stated complaint: JAW BONE INFECTION LOWER LEFT/PAIN Time Seen by Provider: 07/02/21 18:22 Source: patient Mode of arrival: Ambulatory Limitations: no limitations History of Present Illness HPI Narrative: Radha presents today with chief complaint left lower tooth pain and facial pain that has gotten worse over the last few days. She reports that she went to an emergency dental clinic and x-rays were done. They told her that she had an infection but did not send in a prescription for any antibiotics. She is 32 weeks . She denies any significant difficulty swallowing, difficulty breathing, neck swelling, chest pain, headache, double vision, facial swelling or any other acute concerns or complaints at this time. Related Data Home Medications Medication Instructions Recorded Confirmed fenugreek seed extract 500 mg mg PO 09/23/20 05/24/21 capsule flax seed PO TID 09/23/20 05/24/21 prenat.vits,ledy,iym-etqo-yipql 1 tab PO DAILY 01/30/21 05/24/21 Previous Rx's Medication Instructions Recorded doxycycline monohydrate 50 mg 50 mg PO DAILY #90 cap 10/20/20 capsule trazodone 50 mg tablet 25 mg PO DAILY #60 tab 10/21/20 omeprazole 40 mg capsule,delayed 40 mg PO DAILY #30 cap 04/22/21 release blood sugar diagnostic (Blood #120 ea 06/09/21 Glucose Test) blood-glucose meter (Blood Glucose #1 ea 06/09/21 Monitoring) lancets #120 ea 06/09/21 amoxicillin 500 mg capsule 500 mg PO TID 7 Days #21 cap 07/02/21 Allergies Allergy/AdvReac Type Severity Reaction Status Date / Time nalbuphine [From Nubain] Allergy Severe Unconscious Verified 05/24/21 15:11 cat dander Allergy Intermediate Sneezing Verified 05/24/21 15:11 and itchy eyes latex [LATEX] Allergy Intermediate rash Verified 05/24/21 15:11 aspirin AdvReac Vomit Verified 05/24/21 15:11 Review of Systems <Jj Huber PA-C - Last Filed: 07/02/21 19:47> Review of Systems Narrative: As per HPI Patient History <Jj Huber PA-C - Last Filed: 07/02/21 19:47> Medical History (Updated 07/02/21 @ 18:59 by Jj Huber PA-C) Anxiety BMI 31.0-31.9,adult Bronchitis Depression Ectopic (~1994) Herpes (2017) Insomnia Kidney stones LGSIL (low grade squamous intraepithelial dysplasia) OCD (obsessive compulsive disorder) Pneumonia PTSD (post-traumatic stress disorder) Rosacea (1998) Tachycardia Surgical History [place] teeth removed Family History (Updated 01/30/21 @ 09:26 by Daksha Kurtz RN) Mother Age: 67 Heart disease Cancer Myocardial infarction Father Skin cancer Traumatic brain injury Seizures Sister No problems noted. Grandmother Alzheimer's dementia Grandfather Acute alcohol intoxication with alcoholism Grandmother No problems noted. Grandfather No problems noted. Social History marital status: unmarried,living together number of children: 5 household members: children occupational status: employed Smoking Status: Never smoker second hand exposure: No alcohol intake: current substance use type: does not use Smoking Status: Never smoker Substance Use Type: does not use Exam <Jj Huber PA-C - Last Filed: 07/02/21 19:47> Narrative Exam Narrative: Exam Narrative: Const General: cooperative, healthy appearing, comfortable, no acute distress, well developed and well groomed Nutritional Appearance: average body habitus Orientation: alert and oriented x3 HENMT Head: normal to inspection and atraumatic Ears: hearing grossly normal bilaterally Nose: external nose normal and nares normal Face and sinus: normal facial exam, no swelling Mouth: Previous dental restorations noted, gingival erythema and swelling to right lower jaw noted. Dental tenderness noted. Neck Neck: normal visual inspection and supple Resp Effort & Inspection: normal respiratory effort, able to speak in complete sentences, no audible wheezes, not labored, no nasal flaring and no respiratory distress Neuro General: alert, oriented x3, gait normal, tone normal and moves all extremities Cognition: normal cognition Speech: speech normal Gait: normal gait Psych Appearance: grossly normal and well kempt Mental Status: mental status grossly normal Speech and Movement: speech and movement normal Mood: congruent mood Affect: normal affect Initial Vital Signs Initial Vital Signs: Vital Signs Temperature 98.4 F 07/02/21 18:08 Pulse Rate 84 07/02/21 18:08 Respiratory Rate 20 07/02/21 18:08 Blood Pressure 125/77 07/02/21 18:08 Pulse Oximetry 98 07/02/21 18:08 <Lauren Lowe DO - Last Filed: 07/03/21 03:42> Initial Vital Signs Initial Vital Signs: Vital Signs Temperature 98.4 F 07/02/21 18:08 Pulse Rate 84 07/02/21 18:08 Respiratory Rate 20 07/02/21 18:08 Blood Pressure 125/77 07/02/21 18:08 Pulse Oximetry 98 07/02/21 18:08 Course <Jj Huber PA-C - Last Filed: 07/02/21 19:47> Orders Ordered: Discontinued Medications Amoxicillin (Amoxicillin 250 Mg Capsule) 500 mg PO NOW ONE Stop: 07/02/21 18:56 Last Admin: 07/02/21 19:06 Dose: 500 mg Documented by: KIM Vital Signs Vital signs: Vital Signs - 8 hr 07/02/21 18:08 07/02/21 19:16 Temperature 98.4 F Pulse Rate 84 88 Respiratory Rate 20 16 Blood Pressure 125/77 133/85 Pulse Oximetry 98 97 <Lauren Lowe DO - Last Filed: 07/03/21 03:42> Orders Ordered: Discontinued Medications Amoxicillin (Amoxicillin 250 Mg Capsule) 500 mg PO NOW ONE Stop: 07/02/21 18:56 Last Admin: 07/02/21 19:06 Dose: 500 mg Documented by: KIM Vital Signs Vital signs: Vital Signs - 8 hr 07/02/21 18:08 07/02/21 19:16 Temperature 98.4 F Pulse Rate 84 88 Respiratory Rate 20 16 Blood Pressure 125/77 133/85 Pulse Oximetry 98 97 MDM - Dental/Oral <Jj Huber PA-C - Last Filed: 07/02/21 19:47> MDM Narrative Medical decision making narrative: Patient has evidence of dental abscess on physical examination. No systemic signs of illness at this time. We will start antibiotics at this time and have her follow-up with her dentist. Amoxicillin was selected as it is thought to be safe in . Return precautions were discussed with the patient. Patient verbalizes understanding and agrees to plan and has no further concerns at this time. Thank you A [id number] system was used with the dictation of this note. Please disregard any spelling or grammatical errors. Discharge Plan Departure Patient Disposition: Home Clinical Impression: Abscess, dental Instructions: Tooth Abscess Activity Restrictions/Additional Instructions: It was very nice to meet you this evening. Please used the antibiotics to treat the infection and follow up with your dentist as soon as possible. Please return if you develop worsening swelling, difficulty swallowing, difficulty breathing, chest pain or any other acute concerns or complaints. Thank you Jj Huber PAC Prescriptions: New amoxicillin 500 mg capsule 500 mg PO TID 7 Days Qty: 21 RF: 0 No Action trazodone 50 mg tablet 25 mg PO DAILY Qty: 60 RF: 0 omeprazole 40 mg capsule,delayed release(DR/EC) 40 mg PO DAILY Qty: 30 RF: 2 (DME) lancets Misc See Rx Instructions .ROUTE .MEDSUPPLY Qty: 120 RF: 3 (DME) blood-glucose meter [Blood Glucose Monitoring] Kit See Rx Instructions .ROUTE .MEDSUPPLY Qty: 1 RF: 0 (DME) Blood Glucose Test Strip See Rx Instructions .ROUTE .MEDSUPPLY Qty: 120 RF: 3 flax seed PO TID RF: 0 fenugreek seed extract 500 mg capsule PO RF: 0 doxycycline monohydrate 50 mg capsule 50 mg PO DAILY Qty: 90 RF: 0 prenat.vits,ledy,znn-dgve-crflp Tablet 1 tab PO DAILY RF: 0 Referrals: Jenna Neal ARNP [Primary Care Provider] -
[2021-07-02] MEDS: AMOXICILLIN 250 MG CAPSULE 500 MG PO (19:06)
[2021-07-02 19:16] VITALS: BP 133/85; PULSE 88; RESP 16; O2SAT 97
== END 2021-07-02 19:16 | disposition home or self-care (01) ==
PROVIDERS: Emergency Provider Physician Assistant; PCP Nurse Practitioner Family
DX: K04.7 Periapical abscess without sinus (principal)
CPT/HCPCS: 99283

== ENCOUNTER → 2021-08-01 10:35 | Outpatient (CLI) | payer OTHER, MEDICAID, SELFPAY ==
[2021-08-02 08:17] LABS: Strep Grp B PCR NEG for Grp B Strep
== END ==
PROVIDERS: PCP Nurse Practitioner Family; Visit Provider Obstetrics & Gynecology
DX: Z34.83 Encounter for supervision of other normal pregnancy, third trimester (principal); Z3A.36 36 weeks gestation of pregnancy
CPT/HCPCS: 87653

== ENCOUNTER → 2021-08-03 10:38 | Outpatient (CLI) | payer OTHER, MEDICAID, SELFPAY ==
--- NOTE | 2021-08-03 10:40 | DI.US.S_ITS ---
PROCEDURE: US OB LIMITED INDICATIONS: SIZE > DATES OUTSIDE/PRIOR DATING DATA: First dating scan (date and location): 02/06/2021 . Estimated date of delivery (MEHRAN) from first dating scan: 08/26/2021 . TECHNIQUE: Real-time scanning was performed of the fetus, with image documentation and biometric measurements. Endovaginal scanning: No COMPARISON: [facility], OB LIMITED, 06/20/2021, 8:08. FINDINGS: General: A single living intrauterine gestation is present. Presentation: Vertex. Placenta: Placental position is anterior . Amniotic fluid index: 11.9 cm, normal range is 5-24 cm. heart rate: 139 beats per minute. Maternal cervical canal: Not well seen. biometrics: Biparietal diameter: 37 weeks 3 days Head circumference: 38 weeks 0 days Abdominal circumference: 37 weeks 5 days Femur length: 37 weeks 1 day Estimated gestational age from initial scan: 36 weeks 5 days Composite gestational age from present scan: 37 weeks 4 days Estimated weight and percentile: 3256 g; 78th percentile. Measurement variability for biometric dating: +/- 7 days from 14 weeks to 15 weeks 6 days gestation, +/- 10 days from 16 weeks to 21 weeks 6 days gestation, +/- 2 weeks from 22 weeks to 27 weeks 6 days gestation, +/- 3 weeks for 28 weeks gestation or later. weight reference: 4500 g or EFW >90/95% is considered macrosomia or large for gestational age. EFW <10% is small for gestational age. EFW 5% or less is considered intra-uterine growth restriction. Other: Not applicable. IMPRESSION: Normal interval growth. Dictated by: Jj Roque [facility] Interpreted: Coni Boothe MD on 08/03/2021 at 17:12 Transcribed by: LINNETTE on 08/03/2021 at 17:13 Approved by: Coni Boothe M.D. on 08/03/2021 at 22:55
== END ==
PROVIDERS: PCP Nurse Practitioner Family; Referring Provider Obstetrics & Gynecology; Visit Provider Obstetrics & Gynecology
DX: O36.60X0 Maternal care for excessive fetal growth, unspecified trimester, not applicable or unspecified (principal)
CPT/HCPCS: 76815

== ENCOUNTER 2021-08-30 15:20 | Outpatient (CLI) | payer OTHER, MEDICAID, SELFPAY | END 2021-08-30 16:00 | disposition home or self-care (01) | LOC: LABOR 15:55 → OB 08-31 07:37 | PROVIDERS: PCP Nurse Practitioner Family; Referring Provider Obstetrics & Gynecology; Visit Provider Obstetrics & Gynecology | DX: O48.0 Post-term pregnancy (principal); O09.523 Supervision of elderly multigravida, third trimester; Z3A.40 40 weeks gestation of pregnancy | CPT/HCPCS: 59025; G0378; G0379 ==

== ENCOUNTER 2021-09-03 06:48 | Inpatient (IN) | payer OTHER, MEDICAID, SELFPAY ==
--- NOTE | 2021-09-03 06:57 | P.HPOB_ITS ---
OB HPI Date/Time Date of admission: 09/03/21 Date Patient Seen: 09/03/21 Time Patient Seen: 06:58 History of Present Condition Chief complaint: obs of labor : 8 Para: 5 Estimated Date of Delivery: 09/02/21 Estimated Gestational Age (weeks): 40 Narrative: Radha Foster is a 40 year old female presents to the labor delivery floor carla uncomfortably. Since contractions started few hours before arrival just got worse and will send worse. She complains of no headache blurry vision blood pressure problems. She is not having any leakage of fluid. She has had routine care which started at 10 weeks of she has had good follow-up. The gained through is approximately 19 lb. Patient has had no bleeding or spotting. No significant concerning complicated history. History of Present care: good care Dating criteria: LMP confirmed by 1st trimester US Ultrasounds: normal 1st trimester US and normal mid trimester US Obstetrical complications: other (Grand multiparous) Medical complications: none Preadmission Labs Blood type: 0 (-) negative -: Antibody screen: negative, Cystic fibrosis screen: unknown, GBS status: negative, HBsAG: negative, HIV: negative, HSV 1: negative, HSV 2: negative and RPR/VDLR: negative -: Chlamydia screen: not detected and Gonorrhea screen: not detected -: Rubella: immune and Varicella: immune HCAB: negative PAP: Normal Cell-free DNA: Within normal limits Evaluation Evaluation Baseline heart rate: 140 Variability: Average (6-10) monitor accelerations: Present Monitor Decelerations: Absent Contraction Frequency (minutes): 3 Uterine Contraction Intensity: Strong/Firm Category of Tracing: Reactive Status: Category l Cervical dilation (cm): 6 Cervical effacement (%): 90 station: -1 [facility] Medical History Anxiety BMI 31.0-31.9,adult Bronchitis Depression Ectopic (~1994) Herpes (2016) Insomnia Kidney stones LGSIL (low grade squamous intraepithelial dysplasia) OCD (obsessive compulsive disorder) Pneumonia PTSD (post-traumatic stress disorder) Rosacea (1998) Tachycardia Surgical History [place] teeth removed Family History Mother Age: 67 Heart disease Cancer Myocardial infarction Father Skin cancer Traumatic brain injury Seizures Sister No problems noted. Grandmother Alzheimer's dementia Grandfather Acute alcohol intoxication with alcoholism Grandmother No problems noted. Grandfather No problems noted. Social History marital status: unmarried,living together number of children: 5 household members: children occupational status: employed Smoking Status: Never smoker second hand exposure: No alcohol intake: current substance use type: does not use Meds Home Medications and Allergies Home Medications Medication Instructions Recorded Confirmed Type fenugreek seed extract 500 mg mg PO 09/23/20 07/18/21 History capsule flax seed PO TID 09/23/20 07/18/21 History doxycycline monohydrate 50 mg 50 mg PO DAILY #90 cap 10/20/20 07/18/21 Rx capsule trazodone 50 mg tablet 25 mg PO DAILY #60 tab 10/21/20 07/18/21 Rx prenat.vits,ledy,kmp-rsfe-fklou 1 tab PO DAILY 01/30/21 07/18/21 History blood sugar diagnostic (Blood #120 ea 06/09/21 07/18/21 Rx Glucose Test) blood-glucose meter (Blood Glucose #1 ea 06/09/21 07/18/21 Rx Monitoring) lancets #120 ea 06/09/21 07/18/21 Rx acyclovir 400 mg tablet 400 mg PO BID #60 tab 08/01/21 08/01/21 Rx omeprazole 40 mg capsule,delayed 40 mg PO DAILY #30 cap 08/29/21 Rx release Allergies Allergy/AdvReac Type Severity Reaction Status Date / Time nalbuphine [From Nubain] Allergy Severe Unconscious Verified 07/18/21 09:49 cat dander Allergy Intermediate Sneezing Verified 07/18/21 09:49 and itchy eyes latex [LATEX] Allergy Intermediate rash Verified 07/18/21 09:49 aspirin AdvReac Vomit Verified 07/18/21 09:49 Exam Vital Signs (past 8 hours): . General: Alert no apparent distress. Affect is appropriate. Carla it is uncomfortable. HEENT: Neck is supple without lymphadenopathy pupils equal round and reactive. Cardio: S1-S2 regular rate and rhythm. Respiratory: Lungs clear to auscultation. Abdomen: Gravid. Extremities: Normal deep tendon reflexes trace edema. Assessment and Plan Assessment and Plan Assessment and Plan narrative: Term female in active labor and carla. She is a grand multipltip last labor was approximately 5 hours. At patient as she was walking in the center. She is carla. IV was started COVID swab was done care orders were written for. Patient's vital signs are stable and she is afebrile. Category 1 tracing. She is carla every 2-3 minutes. Discussed labor plan and course for her. She is requesting an epidural. GBS status is negative. Rupture of membranes are intact. Anticipate and expectant management.
[2021-09-03] MEDS: FENT 2MCG/ML BUPIV 0.125% EPI 200 MCG/100 ML PLAST..BAG 14 MCG EPIDURAL (07:31)
[2021-09-03 07:41] LABS: Add Manual Diff / Slide Review NO; Basophils Absolute Auto 100 /uL (0-100); Basophils Percent Auto 0.9 % (0-2); Eosinophils Absolute Auto 100 /uL (0-450); Eosinophils Percent Auto 0.8 % (2-4); Hematocrit 38.9 % (36-46); Hemoglobin 12.5 g/dL (12.0-16.0); Lymphocytes Absolute Auto 2000 /uL (1100-4500); Lymphocytes Percent Auto 14.3 % (25-40); Mean Corpuscular HGB Conc 32.1 % (30-36); Mean Corpuscular Hemoglobin 26.9 PG (26-34); Mean Corpuscular Volume 83.9 fL (80-100); Monocytes Absolute Auto 1200 /uL (0-900); Monocytes Percent Auto 8.9 % (3-14); Neutrophils Absolute Auto 10400 /uL (1500-7000); Neutrophils Percent Auto 75.1 % (50-75); Platelet Count 143 X10^3/uL (150-400); Red Blood Cell Count 4.64 X10^6/uL (4.0-5.2); Red Cell Distribution Width 15.9 % (11.6-14.8); White Blood Cell Count 13.8 X10^3/uL (4.5-11.0)
[2021-09-03] MEDS: OXYTOCIN PREMIX 30 UNIT/500 ML PLAST..BAG 100 UNIT IV (09:25)
[2021-09-03] MEDS: OXYTOCIN 10 UNIT/ML VIAL IM (09:26)
--- NOTE | 2021-09-03 09:49 | PM.OBPNLAB ---
Date/Time Date Patient Seen: 09/03/21 Time Patient Seen: 08:00 Pain Control Pain control: epidural Pelvic Exam Dilation (cm): 8 Effacement (%): 90 station: -1 Amniotic membrane status: Ruptured Comments: Clear fluid Contractions Contractions on admission: regular Monitor mode: External Contraction pattern: Regular Contraction intensity: Strong/Firm Status status: Category ll Heart Rate Baseline: 135 Monitor Accelerations: Present Monitor Decelerations: Early Monitor Variability: Moderate Assessment and Plan Assessment: active labor Plan: continuous present management Comments: Patient membrane ruptured with clear fluid. Patient has tested positive for COVID. COVID isolation protocol was instituted. Patient is asymptomatic and unvaccinated.
--- NOTE | 2021-09-03 09:50 | P.PCNOB_ITS ---
Labor & Delivery Delivery date: 09/03/21 Intrapartal Events: None Cervical ripening method: none Induction method: none Delivery augmentation: rupture of membranes Delivery monitor: external FHT and external uterine Route of delivery: L&D Laceration Description: None Estimated blood loss (mL): 300 Complications: Spontaneous vaginal delivery male infant Apgars 8 and 9 Manual removal of placenta after 20 minutes of not spontaneously delivering Stage I of labor approximately 3 hours. Patient presented in active labor to labor and delivery floor 6 7 cm 80% effaced actively carla. IV was started COVID swab was done. Patient tested COVID positive she is unvaccinated. Patient had category 1 category 2 tracing during stage I of labor. Patient had good anesthetic results with the epidural and became complete vital signs were stable afebrile blood pressure was normal. Patient made a rapid cervical ch corby. Stage II of labor patient became complete and pushed for approximately 20 minutes baby's head made good descent through the canal from 0 station to +3 station. During stage II of labor category 2 tracing. Baby was delivered in the occiput anterior position. There was no nuchal cord. At the delivery of the head the shoulders were immediately delivered without difficulty and baby wa s placed on mother's abdomen. Delayed cord clamping was press sued. And baby had a vigorous less cry. Stage III of labor. Patient had active management of stage III of labor with cord traction and fundal massage and Pitocin. Despite this and waiting for appropriate 20 minutes. Placenta was not able to be does delivered in the usual fashion. At that point under epidural anesthesia. Patient's placenta was manually removed form the uterus with minimal discomfort to the mom. Bleeding was anticipated and [id number] after manual removal of the placenta.. Pitocin was running through the bag and 2 g IV Ancef was given. Mom and baby were resting comfortably afterwards Apgars 9 and 9 Baby 1: score (1 min): 8 score (5 min): 9
[2021-09-03 10:17] LABS: COVID-19 CEPHEID PCR (VTM/NP) Negative (Negative)
[2021-09-03 11:12] LABS: COVID19 - ADMIT (NP swab/PCR) Negative (Negative)
[2021-09-03] MEDS: CEFAZOLIN 1 GM VIAL 2 GM IV (11:15)
[2021-09-03] MEDS: METHYLERGONOVINE 0.2 MG TABLET PO (12:03)
[2021-09-03 15:38] VITALS: BP 124/65
[2021-09-03] MEDS: IBUPROFEN 600 MG TABLET PO (20:26)
[2021-09-03] MEDS: ACETAMINOPHEN 325 MG TABLET 650 MG PO (20:26)
[2021-09-04 06:27] LABS: COVID19 - ADMIT (NP swab/PCR) Negative (Negative)
[2021-09-04] MEDS: IBUPROFEN 600 MG TABLET PO (07:29)
[2021-09-04] MEDS: ACETAMINOPHEN 325 MG TABLET 650 MG PO (07:29)
--- NOTE | 2021-09-04 08:43 | PM.OBPN.1 ---
Subjective - OB Subjective Patient comments: no complaints [place] baby status: doing well and nursing well [place] feeding status: exclusively breast feeding Date Patient Seen: 09/04/21 Time Patient Seen: 08:43 Interval history: Patient is day 1 spontaneous vaginal delivery. Patient is urinating and ambulating well. She denies any headaches, scotomata, epigastric pain. She is breast-feeding without difficulty. Mild lochia. No unusual pain. Patient is willing to wait for tubal ligation this evening. Exam Vital Signs (past 8 hours): Blood pressure 115/84, pulse 69, temperature 97.9? Narrative Exam Narrative: Abdomen is soft, nontender. Uterus is firm, at U, nontender. Mild lochia. Extremities without edema and nontender. Objective Labs Result Diagrams: 09/03/21 07:08 Labs: Laboratory Results - last 24 hr 09/03/21 09/03/21 09/03/21 07:00 07:08 09:05 SARS-CoV-2 (PCR) Negative Negative Antibody Identification Anti-D 09/04/21 05:00 SARS-CoV-2 (PCR) Negative Antibody Identification Assessment & Plan Plan plan OB: routine care Comments: Patient undergoing tubal ligation this evening. Home after awake and stable. Time Spent With Patient Time: Total time spent is greater than 50% in coordination of care (as documented) at patient's floor/unit and/or counseling patient: Time with patient: less than 15 minutes
--- NOTE | 2021-09-04 09:42 | P.DS_ITS ---
Discharge Providers Provider Date of admission: 09/03/21 06:48 Discharge Date: 09/04/21 Primary care physician: BILL Castaneda Consults: 09/04/21 09:57 Consult to [facility]el Stitcher Routine Comment: Discharge provider: Montse Ramos MD Summary Hospital Course Date Patient Seen: 09/04/21 Time Patient Seen: 08:00 Diagnoses: active labor with spontaneous vaginal delivery Hospital Course: Patient arrived on Labor and delivery in active labor. She received an epidural catheter for pain control. She had a manual removal of her placenta. Patient had wanted a tubal ligation but her insurance required a [facility] form signed 30-180 days before the procedure which she had not done. Patient initially had a positive COVID test but 2 repeats were negative. Peripartum Data Delivery Method: Natural Vaginal Laceration Description: None Procedures: Epidural catheter, spontaneous vaginal delivery complications: none [place] 1: Gender: Male Disposition of : home Discharge Diagnosis (1) Vaginal delivery: Status: Acute Status at Discharge Cognitive/behavioral status at discharge: oriented Functional status at discharge: independent ambulation Overall status at discharge: patient is progressing back to baseline Time Spent with Patient Time attestation: Total time spent providing and/or coordinating discharge services: Time spent: Less than 30 minutes Objective Labs Result Diagrams: 09/03/21 07:08 Labs: Laboratory Results - last 24 hr 09/03/21 09/03/21 09/04/21 07:00 09:05 05:00 SARS-CoV-2 (PCR) Negative Negative Negative Exam Vital Signs (past 8 hours): blood pressure 115/84, pulse 69, temperature 97.9? Narrative Exam Narrative: Abdomen is soft, nontender. Uterus is firm, at U, nontender. Mild lochia. Extremities without edema and nontender. patient is Rh negative with the baby Rh positive she will receive RhoGAM prior to discharge. She is rubella nonimmune and she will receive rubella vaccine prior to discharge. Discharge Plan Discharge Plan Patient Disposition: Home Discharge orders & Medications Prescriptions: Continued trazodone 50 mg tablet 25 mg PO DAILY Qty: 60 RF: 0 omeprazole 40 mg capsule,delayed release(DR/EC) 40 mg PO DAILY Qty: 30 RF: 2 flax seed PO TID RF: 0 fenugreek seed extract 500 mg capsule PO RF: 0 prenat.vits,ledy,efb-icff-gqhmx Tablet 1 tab PO DAILY RF: 0 Discontinued (DME) lancets Misc See Rx Instructions .ROUTE .MEDSUPPLY Qty: 120 RF: 3 (DME) blood-glucose meter [Blood Glucose Monitoring] Kit See Rx Instructions .ROUTE .MEDSUPPLY Qty: 1 RF: 0 (DME) Blood Glucose Test Strip See Rx Instructions .ROUTE .MEDSUPPLY Qty: 120 RF: 3 doxycycline monohydrate 50 mg capsule 50 mg PO DAILY Qty: 90 RF: 0 acyclovir 400 mg tablet 400 mg PO BID Qty: 60 RF: 2 Follow up/Referrals: Jenna Neal ARNP [Primary Care Provider] - Edward Solis MD [Physician] - 6 Weeks Diet/Activity/Treatments Diet: Regular Activity: nothing in vagina for 6 weeks Skin/Wound/Dressing Care Report to your healthcare provider any signs of infection, such as:: chills, fever and increased pain Discharge Data Primary Care Provider: Jenna Neal
[2021-09-04] MEDS: DOCUSATE 100 MG CAPSULE PO (10:10)
[2021-09-04] MEDS: RHO(D) IMMUNE GLOBULIN 1,500 UNIT SYRINGE 1500 UNIT IM (11:22)
== END 2021-09-04 12:20 | disposition home or self-care (01) | DRG 541 ==
PROVIDERS: Obstetrics & Gynecology; Admitting Provider Family Medicine; PCP Nurse Practitioner Family; Referring Provider Family Medicine; Visit Provider Family Medicine
DX: O48.0 Post-term pregnancy (principal); Z3A.40 40 weeks gestation of pregnancy; Z37.0 Single live birth; Z20.822 Contact with and (suspected) exposure to COVID-19
CPT/HCPCS: 01967; 36415; 59050; 59409; 85025; 86850; 86870; 86900; 86901; 87635; C9803; U0003; G0379; J0690; J2590; J2790

== ENCOUNTER → 2021-10-10 12:48 | Outpatient (CLI) | payer OTHER, MEDICAID, SELFPAY ==
[2021-10-10 13:51] LABS: COVID19 -Nasal RAPID Negative (Negative)
== END ==
PROVIDERS: PCP Nurse Practitioner Family; Referring Provider Obstetrics & Gynecology; Visit Provider Obstetrics & Gynecology
DX: Z01.812 Encounter for preprocedural laboratory examination (principal); Z20.822 Contact with and (suspected) exposure to COVID-19
CPT/HCPCS: 87635

== ENCOUNTER 2021-10-10 13:27 | Day surgery (SDC) | payer OTHER, MEDICAID, SELFPAY ==
[2021-10-10] VITALS (9 sets, daily range): BP systolic 111–126; BP diastolic 48–82; PULSE 50–87; RESP 12–19; TEMP 35.8–36.2; O2SAT 94–100; BMI 32.1
--- NOTE | 2021-10-10 | PATH_ITS ---
[facility] Accession Number: [id number] . 01 Material submitted: . fallopian tube - BILATERAL FALLOPIAN TUBES . 02 Diagnosis: A. Bilateral Fallopian Tubes, Bilateral Salpingectomy: Cross-sections of bilateral fallopian tubes with focal features of hydrosalpinx. Negative for dysplasia and malignancy. [facility] 10/15/2021 2301 Local . 02 Electronically signed: . Francoise Guthrie MD, Pathologist NPI- [id number] . 01 Gross description: . The specimen is received in formalin labeled bilateral fallopian tubes and consists of two fallopian tubes measuring 5.5 cm in length x 0.9 cm in diameter each. The serosa is pink purple with focal fibrinous adhesions. Sectioning reveals a alamo pink mucosa and a stellate lumen measuring 0.3 cm in diameter. Toy Maker sections of each fallopian tube are submitted, to include the en face margin (blue), central cross sections and bisected fimbria in cassettes A1-A2. ([id number]) /[facility] 10/11/2021 1742 Local . 02 Pathologist provided ICD-10: Z30.2 . 02 CPT . 249031 Performed at: 01 [facility] [address], [place], [place] [id number] MD Miguel Carbajal MD Phone: [phone] Performed at: 02 [facility] [address] [place], [place] [id number] MD Yuly Fernández MD Phone: [phone]
--- NOTE | 2021-10-10 14:32 | PM.PREOP ---
Pre-operative Note COVID-19 COVID-19 status: Negative Result date/Date tested (Pos, Neg/Pending): 10/10/21 Interval Note History & Physical reviewed/Exam performed by Physician: Yes Changes to H&P: No
[2021-10-10] MEDS: LACTATED RINGERS 1,000 ML 42 ML IV (14:51)
[2021-10-10] MEDS: SCOPOLAMINE 1 PATCH TOP (15:40)
--- NOTE | 2021-10-10 15:58 | SUR.OPER ---
Lithotomy on padded OR bed, head on pillow, arms secured on padded arm boards at <90 degrees abduction. Legs secured in padded yellow fins stirrups.
[2021-10-10] MEDS: BUPIVACAINE 0.5% (PF) 30 ML, EPINEPHrine 0.15 MG INJ (16:11)
--- NOTE | 2021-10-10 16:30 | PM.GYNOP.1 ---
Operative Date/Time/Diagnoses Date of procedure: 10/10/21 Time of procedure: 16:31 Pre-op diagnosis: Request for sterilization Post-op diagnosis: same Procedure & Clinicians Procedure: Procedures Operation Date: 10/10/21 15:00 Actual Procedure Side Surgeon p Laparoscopic Salpingectomy Bilateral Edward Solis MD Indications: Radha is a 41-year-old status post vaginal who requests interval sterilization.? She is scheduled for laparoscopic bilateral salpingectomy on the afternoon of 10/10/2021 and presents for preoperative evaluation, counseling, and consent. Surgeon: Edward Solis Anesthesia Type: General Operative Notes Findings: Normal pelvis, appendix, and upper abdomen to laparoscopic visualization. Closure Type: primary Specimen(s): left tube and right tube Estimated blood loss (mL): 5 Procedure in detail: With the patient under satisfactory general endotracheal anesthesia in the modified dorsal lithotomy position, the vagina perineum and abdomen were prepped and draped in the usual fashion for laparoscopic surgery. A pre surgical safety time-out was then taken in accordance with [facility] OR protocols. The umbilicus was infiltrated with 0.5% Marcaine with epinephrine and a 1 cm vertical incision was made. Veress needle was used to insufflate the abdomen with carbon dioxide and once insufflated a 5 mm bladeless trocar and sleeve were inserted. Scope was placed to confirm intra-abdominal location and insufflation of the abdomen was completed. Two additional 5 mm ports were then placed in the left and right mid quadrant using the same technique as the umbilical port. Using a 3 puncture technique the pelvis and abdomen were thoroughly visualized with the findings as noted. The left fallopian tube was grasped at its distal portion and elevated. Using a PK bipolar device the fimbria varicose and then the entire mesosalpinx were coagulated and divided to the cornua. At the cornua the base of the fallopian tube was coagulated and divided. The excised fallopian tube was then removed through 1 of the 5 mm ports and attention turned to the right side. The distal right fallopian tube was grasped with a grasping forceps and elevated. The fimbria varicose was coagulated and divided with PK device and that dissection was carried all the way across the mesosalpinx on the right to the cornua. The base of the fallopian tube was then coagulated and divided and the specimen removed through a 5 mm port. The pelvis was thoroughly inspected again and there was absolutely no bleeding in the pelvis noted. The pneumoperitoneum was then vented and the 5 mm ports removed. The port incisions were all closed with 4-0 Monocryl using inverted interrupted stitches and skin glue was applied. Appropriate dressings were applied to all the incisions and the patient was awakened. She was then transferred to the PACU for a period of observation in recovery having tolerated the procedure well. Complications experience none. Complications: none Post-operative Condition: stable Disposition: PACU Plan for aftercare: Routine postop care. Follow-up in 2 weeks.
[2021-10-10] MEDS: OXYCODONE IR 5 MG TABLET PO ×2 (16:48→17:25)
--- NOTE | 2021-10-10 16:51 | SUR.PHASEI ---
6291-discussed allergies with patient-had stated she has taken oxycodone in past and okay to take. pill given with applesauce.
== END 2021-10-10 17:50 | disposition home or self-care (01) ==
PROVIDERS: PCP Nurse Practitioner Family; Referring Provider Obstetrics & Gynecology; Visit Provider Obstetrics & Gynecology
PROC: 0UT74ZZ Resection of Bilateral Fallopian Tubes, Percutaneous Endoscopic Approach (ICD-10-PCS; CPT 58661; principal; 2021-10-10 15:00)
DX: Z30.2 Encounter for sterilization (principal); K21.9 Gastro-esophageal reflux disease without esophagitis; F41.9 Anxiety disorder, unspecified; E66.9 Obesity, unspecified; Z68.32 Body mass index [BMI] 32.0-32.9, adult; Z20.822 Contact with and (suspected) exposure to COVID-19
CPT/HCPCS: 58661; 87635; J0171; J0330; J1100; J1885; J2250; J2405; J2704

== ENCOUNTER → 2022-07-26 16:20 | Outpatient (CLI) | payer OTHER, MEDICAID, SELFPAY ==
--- NOTE | 2022-07-26 16:22 | DI.RAD.S_ITS ---
PROCEDURE: XR HIP W PEL IF DONE RT 2V INDICATIONS: Atraumatic progressive right hip pain TECHNIQUE: AP and frogleg lateral views of the hip were acquired. COMPARISON: None. FINDINGS: Bones: No acute fractures or dislocations. No suspicious bony lesions. The visualized pelvic ring appears intact. Mild degenerative changes of the right hip joint. Soft tissues: No suspicious soft tissue calcifications or masses. IMPRESSION: Right hip without acute osseous abnormalities. Mild degenerative changes of the right hip joint. If there are persistent symptoms or clinical suspicion for pathology, then repeat radiographs or advanced imaging (CT or MRI) may be considered for further evaluation. Dictated by: Drew Raman M.D. on 07/27/2022 at 11:30 Approved by: Drew Raman M.D. on 07/27/2022 at 11:31
== END ==
PROVIDERS: PCP Family Medicine; Referring Provider Family Medicine; Visit Provider Family Medicine
DX: M25.551 Pain in right hip (principal)
CPT/HCPCS: 73502

== ENCOUNTER → 2022-11-26 08:30 | Outpatient (CLI) | payer OTHER, MEDICAID, SELFPAY ==
[2022-11-26 10:28] LABS: Add Manual Diff / Slide Review NO; Basophils Absolute Auto 0 /uL (0-100); Basophils Percent Auto 0.6 % (0-2); Eosinophils Absolute Auto 100 /uL (0-450); Eosinophils Percent Auto 2.1 % (2-4); Hemoglobin 13.1 g/dL (12.0-16.0); Lymphocytes Absolute Auto 1700 /uL (1100-4500); Lymphocytes Percent Auto 27.2 % (25-40); Mean Corpuscular HGB Conc 32.8 % (30-36); Mean Corpuscular Volume 85.4 fL (80-100); Monocytes Absolute Auto 700 /uL (0-900); Neutrophils Absolute Auto 3500 /uL (1500-7000); Neutrophils Percent Auto 58.1 % (50-75); Platelet Count 201 X10^3/uL (150-400); Red Blood Cell Count 4.69 X10^6/uL (4.0-5.2); Red Cell Distribution Width 15.1 % (11.6-14.8); White Blood Cell Count 6.1 X10^3/uL (4.5-11.0)
[2022-11-26 10:36] LABS: Hemoglobin A1C% w Est Avg Glu 5.4 % (4.0-6.0)
[2022-11-26 10:39] LABS: Alanine Aminotransferase 18 IU/L (<35); Albumin 4.2 g/dL (3.5-5.0); Albumin Globulin Ratio 1.3 (1.0-2.8); Alkaline Phosphatase 72 U/L (38-126); Aspartate Aminotransferase 23 IU/L (14-36); BUN Creatinine Ratio 22.9 (6-22); Bilirubin Total 0.5 mg/dL (0.2-1.3); Blood Urea Nitrogen 19 mg/dL (7-17); Calcium 8.6 mg/dL (8.4-10.2); Carbon Dioxide 24 mmol/L (22-32); Chloride 106 mmol/L (98-107); Cholesterol 240 mg/dL (140-199); Estimated Glomerular Filt Rate > 60 mL/min (>60); Globulin 3.3 g/dL (1.7-4.1); Glucose 87 mg/dL (70-100); HDL Cholesterol 57 mg/dL (40-60); HEMOLYSIS < 15 (0-50); LDL Cholesterol Calculated 172 mg/dL (<100); Potassium 4.3 mmol/L (3.4-5.1); Sodium 137 mmol/L (137-145); Total Protein 7.5 g/dL (6.3-8.2); Triglycerides 57 mg/dL (35-150)
[2022-11-26 11:48] LABS: TSH w/ Reflex to FT4 1.44 uIU/mL (0.47-4.68)
== END ==
PROVIDERS: PCP Family Medicine; Referring Provider Family Medicine; Visit Provider Family Medicine
DX: F41.9 Anxiety disorder, unspecified (principal); N92.0 Excessive and frequent menstruation with regular cycle; Z68.31 Body mass index [BMI] 31.0-31.9, adult
CPT/HCPCS: 36415; 80053; 80061; 83036; 84443; 85025

== ENCOUNTER → 2025-02-26 08:15 | Outpatient (CLI) | payer OTHER, SELFPAY ==
[2025-02-26 08:57] LABS: Hematocrit 41.4 % (36-46); Hemoglobin 13.6 g/dL (12.0-16.0); Mean Corpuscular HGB Conc 32.8 % (30-36); Mean Corpuscular Hemoglobin 28.2 PG (26-34); Platelet Count 199 X10^3/uL (150-400); Red Blood Cell Count 4.81 X10^6/uL (4.0-5.2); Red Cell Distribution Width 15.2 % (11.6-14.8); White Blood Cell Count 4.8 X10^3/uL (4.5-11.0)
[2025-02-26 09:17] LABS: Alanine Aminotransferase 22 IU/L (<35); Albumin 4.1 g/dL (3.5-5.0); Albumin Globulin Ratio 1.6 (1.0-2.8); Alkaline Phosphatase 71 U/L (38-126); Aspartate Aminotransferase 27 IU/L (14-36); BUN Creatinine Ratio 14.4 (6-22); Bilirubin Total 0.7 mg/dL (0.2-1.3); Blood Urea Nitrogen 14 mg/dL (7-17); Calcium 9.1 mg/dL (8.4-10.2); Carbon Dioxide 24 mmol/L (22-32); Chloride 106 mmol/L (98-107); Cholesterol 195 mg/dL (140-199); Estimated Glomerular Filt Rate > 60 mL/min (>60); Globulin 2.5 g/dL (1.7-4.1); Glucose 92 mg/dL (70-100); HDL Cholesterol 57 mg/dL (40-60); HEMOLYSIS < 15 (0-50); LDL Cholesterol Calculated 129 mg/dL (<100); Potassium 4.4 mmol/L (3.4-5.1); Sodium 138 mmol/L (137-145); Total Protein 6.6 g/dL (6.3-8.2); Triglycerides 45 mg/dL (35-150)
[2025-02-26 09:49] LABS: TSH w/ Reflex to FT4 0.89 uIU/mL (0.47-4.68)
[2025-02-26 09:51] LABS: Ferritin 12 ng/mL (6-137)
== END ==
LOC: LAB 08:19
PROVIDERS: PCP Family Medicine; Referring Provider Family Medicine; Visit Provider Family Medicine
DX: E78.2 Mixed hyperlipidemia (principal); Z68.31 Body mass index [BMI] 31.0-31.9, adult; G25.81 Restless legs syndrome
CPT/HCPCS: 36415; 80053; 80061; 82728; 84443; 85027

== ENCOUNTER → 2025-06-04 09:47 | Outpatient (CLI) | payer OTHER, SELFPAY ==
[2025-06-04 10:53] LABS: Cholesterol 190 mg/dL (140-199); Triglycerides 48 mg/dL (35-150)
[2025-06-04 11:08] LABS: HDL Cholesterol 60 mg/dL (40-60)
== END ==
PROVIDERS: PCP Family Medicine; Referring Provider Family Medicine; Visit Provider Family Medicine
DX: E78.2 Mixed hyperlipidemia (principal); Z68.31 Body mass index [BMI] 31.0-31.9, adult
CPT/HCPCS: 36415; 80061

== ENCOUNTER → 2025-09-16 10:46 | Outpatient (CLI) | payer OTHER, SELFPAY | PROVIDERS: PCP Family Medicine; Visit Provider Chiropractor | DX: R30.0 Dysuria (principal) | CPT/HCPCS: 87077; 87086; 87186 ==